=== PATIENT | female | born 1985 ===

== ENCOUNTER 2018-05-02 18:45 | Inpatient (IN) | payer OTHER ==
[2018-05-02] MEDS ORDERED: Lactated Ringer's 1,000 ML IV STA (19:57)
[2018-05-02 20:24] LABS: BASO % 0.4 % (0.0-2.0); EOS # 0.1 K/uL (0.0-0.7); EOS % 0.9 % (0.0-4.0); LYMPH # 3.6 K/uL (1.0-4.3); LYMPH % 36.9 % (20.0-40.0); MEAN CELL VOLUME 75.8 fl (81.0-99.0); MEAN PLATELET VOLUME 8.2 fl (7.2-11.7); MONO # 0.8 K/uL (0.0-0.8); NEUT # 5.2 K/uL (1.8-7.0); NEUT % 53.8 % (50.0-75.0); RBC 2.44 Mil/uL (3.80-5.20); RED CELL DISTRIBUTION WIDTH 19.1 % (11.5-14.5); WHITE BLOOD COUNT 9.7 K/uL (4.8-10.8)
--- NOTE | 2018-05-02 20:27 | ED PDOC ---
HPI: General Adult Time Seen by Provider: 05/02/18 19:10 Chief Complaint (Nursing): Palpitations Chief Complaint (Provider): Vaginal Bleeding and Lightheadedness History Per: Patient History/Exam Limitations: no limitations Onset/Duration Of Symptoms: Days (xweek) Current Symptoms Are (Timing): Still Present Additional Complaint(s): 32 year old female with a history of anemia presents to the ED with lightheadedness and vaginal bleeding onset last week. Patient reports heavy bleeding and using over 5 pads a day with clots. Over last 2 days, she has developed a progressively worsening lightheadedness, with shortness of breath, poor exercise tolerance, and pallor. When she walks, her legs and back hurt so much that she has to stop. Her last period was 4 months ago, before then she had been trying different control pills to become regular. The last time she took them was 4 months ago. PMD: none provided Past Medical History Reviewed: Historical Data, Nursing Documentation, Vital Signs Vital Signs: Last Vital Signs Temp 98.8 F 05/02/18 18:52 Pulse 102 H 05/02/18 18:52 Resp 18 05/02/18 18:52 BP 140/78 05/02/18 18:52 Pulse Ox 99 05/02/18 18:52 - Medical History PMH: Anemia - Surgical History Surgical History: No Surg Hx - Family History Family History: States: No Known Family Hx - Social History Current smoker - smoking cessation education provided: No Ex-Smoker (has not smoked in the last 12 months): No - Allergies Allergies/Adverse Reactions: Allergies Allergy/AdvReac Type Severity Reaction Status Date / Time No Known Allergies Allergy Verified 05/02/18 18:52 Review of Systems Gastrointestinal: Positive for: Abdominal Pain (cramping) Genitourinary Female: Positive for: Vaginal Bleeding Neurological: Positive for: Other (lightheadedness) Physical Exam - Reviewed Nursing Documentation Reviewed: Yes Vital Signs Reviewed: Yes - Physical Exam Appears: Positive for: In Acute Distress (tired appearing) Skin: Positive for: Pallor Gastrointestinal/Abdominal: Positive for: Soft, Tenderness (suprapubic) - Laboratory Results Result Diagrams: 05/02/18 20:05 05/02/18 20:05 - ECG O2 Sat by Pulse Oximetry: 99 (RA) Pulse Ox Interpretation: Normal Medical Decision Making Medical Decision Making: Time: 1951 Initial Impression: Vaginal bleeding and anemia Initial Plan: --Type and screen --CMP --Lact acid --U preg --U dip --CBC with differentials --PTT --PT --Lactated ringers --US transvaginal --Hemoglobin is 6.1. Discussed case with WENCESLAO Cruz money position officer. Patient will be admitted for severe anemia and vaginal bleeding. Patient received 2 units of PRBCS and IV TXA. Discussed findings and plan of care, risks and benefits of blood transfusion discussed. Patient signed consent for treatment. Scribe Attestation: Documented by Kassandra Pathak, acting as a scribe for Katja Villa MD Provider Scribe Attestation: All medical record entries made by the Scribe were at my direction and personally dictated by me. I have reviewed the chart and agree that the record accurately reflects my personal performance of the history, physical exam, medical decision making, and the department course for this patient. I have also personally directed, reviewed, and agree with the discharge instructions and disposition. Disposition - Disposition Forms: [employer] (Citizen Of [place])
[2018-05-02 20:28] LABS: PROTHROMBIN TIME 11.3 Seconds (9.8-13.1)
[2018-05-02 20:30] LABS: PARTIAL THROMBOPLASTIN TIME 29.3 Seconds (25.6-37.1)
[2018-05-02 20:35] LABS: ALB/GLOB RATIO 1.3 (1.0-2.1); ALBUMIN 3.8 g/dL (3.5-5.0); ALT/SGPT 24 U/L (9-52); AST/SGOT 31 U/L (14-36); BLOOD UREA NITROGEN 15 mg/dl (7-17); CALCIUM 8.9 mg/dL (8.4-10.2); GFR NON-AFRICAN AMERICAN > 60
[2018-05-02 20:37] LABS: HEMOGLOBIN 6.1 g/dL (12.0-16.0)
--- NOTE | 2018-05-02 23:00 | CP.PCM.HP ---
History of Present Illness - History of Present Illness History of Present Illness: 32 year old female presents with a 1 week history of heavy menstrual bleeding and numerous clots (10 pads/day) and complains of lightheadedness, headache, and shortness of breath. As per patient this happened one year prior, went to [facility] ED, was not transfused or admitted and was told to go to a apron cleaner. The apron cleaner she saw (patient cannot recall name) gave her OCPs which regulated her period and bleeding. 4 months ago she stopped taking her control. Last month she bled everyday but not as much as this prior week. She denies syncope, chest pain, nausea, vomiting, dirrhea, constipation, urinary symptoms and rectal bleeding. PCP: none PMH: previous anemia secondary to acute blood loss? 2017 Family Hx: Mother- DM Social: 5-6 cig/week, social EtOH, denies illicit drugs Surgical Hx: gallbladder 2013 OBHx: irregular period, OCP 2016 - December 2017 Vitals: stable, BP 113/80, HR 91 Present on Admission - Present on Admission Any Indicators Present on Admission: No Review of Systems - Constitutional Constitutional: absent: Anorexia, Chills, Fever - EENT Eyes: absent: Change in Vision - Cardiovascular Cardiovascular: absent: Chest Pain with Activity - Respiratory Respiratory: As Per HPI - Gastrointestinal Gastrointestinal: absent: Abdominal Pain, Change in Stool Character, Constipation, Diarrhea - Reproductive: Female Reproductive:Female: As Per HPI - Neurological Neurological: absent: Syncope Past Patient History - Past Social History Smoking Status: Unknown If Ever Smoked - HEMATOLOGICAL/ONCOLOGICAL Hx Anemia: Yes - GENITOURINARY/GYNECOLOGICAL Hx Genitourinary Disorders: Yes Other/Comment: PCOD - PSYCHIATRIC Hx Substance Use: No Meds Allergies/Adverse Reactions: Allergies Allergy/AdvReac Type Severity Reaction Status Date / Time No Known Allergies Allergy Verified 05/02/18 18:52 Physical Exam - Constitutional Appears: Non-toxic - Head Exam Head Exam: ATRAUMATIC - Eye Exam Additional comments: conjunctival pallor - ENT Exam ENT Exam: Mucous Membranes Dry - Respiratory Exam Respiratory Exam: Clear to Auscultation Bilateral, NORMAL BREATHING PATTERN - Cardiovascular Exam Cardiovascular Exam: REGULAR RHYTHM - GI/Abdominal Exam GI & Abdominal Exam: Normal Bowel Sounds, Soft. absent: Tenderness - Exam External exam: NORMAL EXTERNAL EXAM (minimal bleeding noted on pad - no clots) - Extremities Exam Extremities exam: Positive for: normal inspection. Negative for: pedal edema - Neurological Exam Neurological exam: Alert, Oriented x3 - Psychiatric Exam Psychiatric exam: Normal Affect, Normal Mood - Skin Skin Exam: Dry, Pallor Results - Vital Signs Recent Vital Signs: Last Vital Signs Temp 98.1 F 05/02/18 22:46 Pulse 88 05/02/18 22:46 Resp 18 05/02/18 22:46 BP 106/61 05/02/18 22:46 Pulse Ox 100 05/02/18 22:07 - Labs Result Diagrams: 05/02/18 20:05 05/02/18 20:05 Labs: Laboratory Results - last 24 hr 05/02/18 05/02/18 05/02/18 20:05 20:05 20:05 WBC 9.7 RBC 2.44 L Hgb 6.1 L* Hct 18.5 L MCV 75.8 L MCH 25.0 L MCHC 33.0 RDW 19.1 H Plt Count 320 MPV 8.2 Neut % (Auto) 53.8 Lymph % (Auto) 36.9 [place] % (Auto) 8.0 Eos % (Auto) 0.9 Baso % (Auto) 0.4 Neut # (Auto) 5.2 Lymph # (Auto) 3.6 [place] # (Auto) 0.8 Eos # (Auto) 0.1 Baso # (Auto) 0.0 PT 11.3 INR 1.0 APTT 29.3 Sodium 140 Potassium 3.6 Chloride 104 Carbon Dioxide 27 Anion Gap 13 BUN 15 Creatinine 0.6 L Est GFR ( Amer) > 60 Est GFR (Non-Af Amer) > 60 Random Glucose 93 Lactic Acid Calcium 8.9 Total Bilirubin < 0.1 L AST 31 ALT 24 Alkaline Phosphatase 70 Total Protein 6.7 Albumin 3.8 Globulin 3.0 Albumin/Globulin Ratio 1.3 Blood Type Blood Type Confirm Antibody Screen Crossmatch BBK History Checked 05/02/18 05/02/18 05/02/18 20:05 20:16 21:00 WBC RBC Hgb Hct MCV MCH MCHC RDW Plt Count MPV Neut % (Auto) Lymph % (Auto) [place] % (Auto) Eos % (Auto) Baso % (Auto) Neut # (Auto) Lymph # (Auto) [place] # (Auto) Eos # (Auto) Baso # (Auto) PT INR APTT Sodium Potassium Chloride Carbon Dioxide Anion Gap BUN Creatinine Est GFR ( Amer) Est GFR (Non-Af Amer) Random Glucose Lactic Acid < 0.5 L Calcium Total Bilirubin AST ALT Alkaline Phosphatase Total Protein Albumin Globulin Albumin/Globulin Ratio Blood Type O POSITIVE Blood Type Confirm O POSITIVE Antibody Screen Negative Crossmatch See Detail BBK History Checked No verified bt Assessment & Plan - Assessment and Plan (Free Text) Assessment: 32 year old female presents with a 1 week history of heavy menstrual bleeding and numerous clots (10 pads/day) and complains of lightheadedness, headache, and shortness of breath. Anemia likely secondary to acute blood loss -2 units PRBC -traneximic acid -NPO -IVF D5 + 0.5NS + 20 mEq K -monitor vitals overnight -repeat CBC am
[2018-05-03] MEDS: Potassium Ch 20mEq in D5-1/2NS 1,000 ML IV SCH ×3 (02:54→08:21)
[2018-05-03 07:46] VITALS: BP 99/62; PULSE 70; RESP 19; TEMP 97.8; O2SAT 98
[2018-05-03 09:14] LABS: HEMOGLOBIN 8.5 g/dL (12.0-16.0); MEAN CELL VOLUME 79.7 fl (81.0-99.0); MEAN CORPUSCULAR HEMOGLOBIN 26.8 pg (27.0-31.0); MEAN CORPUSCULAR HGB CONC 33.6 g/dL (33.0-37.0); RBC 3.17 Mil/uL (3.80-5.20); WHITE BLOOD COUNT 8.7 K/uL (4.8-10.8)
--- NOTE | 2018-05-03 09:33 | CP.PCM.DIS ---
Provider - Provider Date of Admission: 05/02/18 21:53 Attending physician: Kaden Clemons MD Time Spent in preparation of Discharge (in minutes): 30 Diagnosis - Discharge Diagnosis (1) Menorrhagia Status: Acute Comment: Patient recieved 2 pRBC during hospital stay. Repeat CBC: 8.5/ 25.3. Patient will be schedule by Natalie Garcia for follow up with Dr. Zuniga in [facility] gynecology clinic. Hospital Course - Lab Results Lab Results: Most Recent Lab Values WBC 8.7 K/uL (4.8-10.8) 05/03/18 09:05 RBC 3.17 Mil/uL (3.80-5.20) L 05/03/18 09:05 Hgb 8.5 g/dL (12.0-16.0) L D 05/03/18 09:05 Hct 25.3 % (34.0-47.0) L 05/03/18 09:05 MCV 79.7 fl (81.0-99.0) L D 05/03/18 09:05 MCH 26.8 pg (27.0-31.0) L 05/03/18 09:05 MCHC 33.6 g/dL (33.0-37.0) 05/03/18 09:05 RDW 19.0 % (11.5-14.5) H 05/03/18 09:05 Plt Count 278 K/uL (130-400) 05/03/18 09:05 MPV 8.2 fl (7.2-11.7) 05/02/18 20:05 Neut % (Auto) 53.8 % (50.0-75.0) 05/02/18 20:05 Lymph % (Auto) 36.9 % (20.0-40.0) 05/02/18 20:05 [place] % (Auto) 8.0 % (0.0-10.0) 05/02/18 20:05 Eos % (Auto) 0.9 % (0.0-4.0) 05/02/18 20:05 Baso % (Auto) 0.4 % (0.0-2.0) 05/02/18 20:05 Neut # (Auto) 5.2 K/uL (1.8-7.0) 10/08/18 20:05 Lymph # (Auto) 3.6 K/uL (1.0-4.3) 05/02/18 20:05 [place] # (Auto) 0.8 K/uL (0.0-0.8) 05/02/18 20:05 Eos # (Auto) 0.1 K/uL (0.0-0.7) 05/02/18 20:05 Baso # (Auto) 0.0 K/uL (0.0-0.2) 05/02/18 20:05 PT 11.3 Seconds (9.8-13.1) 05/02/18 20:05 INR 1.0 05/02/18 20:05 APTT 29.3 Seconds (25.6-37.1) 05/02/18 20:05 Sodium 140 mmol/l (132-148) 05/02/18 20:05 Potassium 3.6 MMOL/L (3.6-5.0) 05/02/18 20:05 Chloride 104 mmol/L (98-107) 05/02/18 20:05 Carbon Dioxide 27 mmol/L (22-30) 05/02/18 20:05 Anion Gap 13 (10-20) 05/02/18 20:05 BUN 15 mg/dl (7-17) 05/02/18 20:05 Creatinine 0.6 mg/dl (0.7-1.2) L 05/02/18 20:05 Est GFR ( Amer) > 60 05/02/18 20:05 Est GFR (Non-Af Amer) > 60 05/02/18 20:05 Random Glucose 93 mg/dL (65-105) 05/02/18 20:05 Lactic Acid < 0.5 MMOL/L (0.7-2.1) L 05/02/18 20:16 Calcium 8.9 mg/dL (8.4-10.2) 05/02/18 20:05 Total Bilirubin < 0.1 mg/dl (0.2-1.3) L 05/02/18 20:05 AST 31 U/L (14-36) 05/02/18 20:05 ALT 24 U/L (9-52) 05/02/18 20:05 Alkaline Phosphatase 70 U/L (38-126) 05/02/18 20:05 Total Protein 6.7 G/DL (6.3-8.2) 05/02/18 20:05 Albumin 3.8 g/dL (3.5-5.0) 05/02/18 20:05 Globulin 3.0 gm/dL (2.2-3.9) 05/02/18 20:05 Albumin/Globulin Ratio 1.3 (1.0-2.1) 05/02/18 20:05 Blood Type O POSITIVE 05/02/18 20:05 Blood Type Confirm O POSITIVE 05/02/18 21:00 Antibody Screen Negative 05/02/18 20:05 Crossmatch See Detail 05/02/18 20:05 BBK History Checked No verified bt 05/02/18 20:05 - Hospital Course Hospital Course: 32 year old female presents with a 1 week history of heavy menstrual bleeding and numerous clots (10 pads/day) and complains of lightheadedness, headache, and shortness of breath. Patient reports this happened last year but she was not transfused or admitted. At that time she went to her Brand Ambassador Promotional Model, patient cannot recall name of [employer], and was given OCPs. She reports the OCPs regulated her period and bleeding. She took OCPs from December. Last month she reports she bled everyday but not as much as this prior week. She denies syncope, chest pain, nausea, vomiting, bleeding disorder history or history of bleeding disorder in the family, diarrhea, constipation, urinary symptoms and rectal bleeding. PCP: none PMH: previous anemia secondary to acute blood loss? 2017 Family Hx: Mother- DM Social: 5-6 cig/week, social EtOH, denies illicit drugs Surgical Hx: gallbladder 2013 OBHx: irregular period, OCP 2016 - December 2017 ED course: T: 98.1 F ; HR: 88; Resp: 18; BP: 106/81; pulse ox: 100% - CBC: H/H: 6.1/18.4 - U/s transvaginal performed- pending results - LR 1 L bolus given - Patient was admitted for severe anemia under OBGYN. Floor Course: Patient vitally stable throughout course of hospital stay. She received 2 u of pRBCs and Tranexamic acid 1,000 mg x2. Repeat CBC H/H: 8.5/25.3. Patient stable for discharge with appointment for [facility] gynecology clinic, Dr. Zuniga. Natalie Jorge, the renderer, was emailed 05/03 @ 9:30 am for a follow up in 1-2 weeks. Discharge Exam - Head Exam Head Exam: ATRAUMATIC - Eye Exam Additional comments: Conjunctival pallor. - ENT Exam ENT Exam: Mucous Membranes Moist - Respiratory Exam Respiratory Exam: Clear to PA & Lateral, NORMAL BREATHING PATTERN, UNREMARKABLE. absent: Rales, Rhonchi, Wheezes, Respiratory Distress, Stridor - Cardiovascular Exam Cardiovascular Exam: REGULAR RHYTHM, RRR, +S1, +S2. absent: Diastolic murmur, Gallop, JVD, Rubs, +S4, Systolic Murmur Additional comments: +2 Dorsalis pedis, Tibialis and radial pulses bilaterally. - GI/Abdominal Exam GI & Abdominal Exam: Normal Bowel Sounds, Soft, Unremarkable. absent: Distended, Firm, Hernia, Mass, Rebound, Rigid, Tenderness - Neurological Exam Neurological exam: Alert, Oriented x3 - Skin Skin Exam: Dry, Intact, Normal Color, Warm Discharge Plan - Follow Up Plan Condition: GOOD Disposition: HOME/ ROUTINE Patient education suggested?: Yes Instructions: Heavy Periods (DC), Normocytic Normochromic Anemia (DC) Additional Instructions: It is important to follow up in [place] with Dr. Zuniga in 1- 2 weeks. You will be called to schedule an appointment by Natalie Garcia. Referrals: [facility] [Outside] Desiree Dudley MD [Staff Provider] -
--- NOTE | 2018-05-03 12:00 | US ---
Date of service: 05/02/2018 HISTORY: heavy vaginal bled and irregular menses. Currently bleeding 4 weeks duration. LMP: Not provided COMPARISON: None available. TECHNIQUE: Transvaginal only. Real -time technique with 2D, duplex and color Doppler FINDINGS: UTERUS: Measures 3.4 x 3.9 x 8.3 cm. Normal in size and appearance. No fibroid or other mass lesion seen. ENDOMETRIUM: Measures 13.3 mm in diameter. No ultrasound findings to suggest gestational sac, fluid, debris, mass or polyp or other pathologic process within the endometrium. CERVIX: No cervical abnormality identified.Incidental finding: Nabothian cysts the largest measures less than 1 cm. RIGHT OVARY: Measures 1.9 x 3 x 3 cm. No solid mass. Normal flow. Multiple subcentimeter follicles. LEFT OVARY: Measures 2.1 x 2.6 x 2.8 cm. No solid mass. Normal flow. Multiple subcentimeter follicles. FREE FLUID: No significant free fluid noted. OTHER FINDINGS: None. IMPRESSION: No acute findings related to/accounting for the clinical presentation. Additional benign and/or incidental findings described above. Concordant results (preliminary interpretation) provided by [employer]. Procedure Completed: 21:43 Preliminary Report: Dictated and Authenticated: 23:13. Final Interpretation: 11:57. May 03, 2018
[2018-05-03 14:47] LABS: BLOOD UREA NITROGEN 10 mg/dl (7-17); CALCIUM 8.4 mg/dL (8.4-10.2); GFR NON-AFRICAN AMERICAN > 60
== END 2018-05-03 14:11 | disposition home or self-care (01) | DRG 369 ==
LOC: H.ER 18:45 → H.ERHOLD 21:53 → H.MEDSURG1 23:24
PROVIDERS: ADMIT Obstetrics & Gynecology; ATTEND Obstetrics & Gynecology
PROC: 30233N1 Transfusion of Nonautologous Red Blood Cells into Peripheral Vein, Percutaneous Approach (ICD-10-PCS; principal; 2018-05-02)
DX: N92.0 Excessive and frequent menstruation with regular cycle (principal); Z83.3 Family history of diabetes mellitus; D62 Acute posthemorrhagic anemia; E28.2 Polycystic ovarian syndrome

== ENCOUNTER 2018-07-19 21:08 | Emergency (ER) | payer SELFPAY ==
[2018-07-19 21:16] VITALS: TEMP 98.8
--- NOTE | 2018-07-19 22:44 | ED PDOC ---
HPI: Female Pain Time Seen by Provider: 07/19/18 21:57 Chief Complaint (Nursing): Female Genitourinary Chief Complaint (Provider): bleeding History Per: Patient History/Exam Limitations: no limitations Additional Complaint(s): 33 y/o F with hx of dysfunctional uterine bleeding who presents with heavy vaginal bleeding since yesterday. Pt states that she has a history of this. She was seen in ER approximately 2 months ago and was found to have HgB 6 requiring blood transfusion. She followed up with [employer] Operator Dr. Gutierrez and was advised to take Medroxyprogesterone 10mg PO TID for 7 days if she began having heavy bleeding again. Pt states that she began noticing heavy bleeding yesterday. She has taken 3 doses of the Medroxyprogesterone w/o any improvement in the bleeding. She is noticing blood clots and is wearing adult diapers, which she has changed 10 times since this morning and has some pelvic cramping. She admits to some lightheadedness and chest heaviness as well as SOB with activity. She has some chest heaviness at rest. Denies palpitations, syncope, N/V, diarrhea. Abnormal Vaginal Bleeding: Yes Past Medical History Reviewed: Historical Data, Nursing Documentation, Vital Signs Vital Signs: Last Vital Signs Temp 98.8 F 07/19/18 21:12 Pulse 80 07/19/18 21:12 Resp 18 07/19/18 21:12 BP 159/77 H 07/19/18 21:12 Pulse Ox 99 07/19/18 21:12 - Medical History PMH: Anemia Denies: Chronic Kidney Disease Other PMH: polycystic ovarian syndrome - Surgical History Surgical History: No Surg Hx - Family History Family History: States: Unknown Family Hx - Allergies Allergies/Adverse Reactions: Allergies Allergy/AdvReac Type Severity Reaction Status Date / Time No Known Allergies Allergy Verified 07/19/18 21:11 Physical Exam - Reviewed Nursing Documentation Reviewed: Yes Vital Signs Reviewed: Yes - Physical Exam Appears: Positive for: Non-toxic Head Exam: Positive for: ATRAUMATIC Skin: Positive for: Normal Color Eye Exam: Positive for: Other (pale conjunctiva) Neck: Positive for: Normal Cardiovascular/Chest: Positive for: Regular Rate, Rhythm Respiratory: Positive for: Normal Breath Sounds Gastrointestinal/Abdominal: Positive for: Tenderness (mild pelvic tenderness) Lymphatic: Positive for: Normal Exam Neurologic/Psych: Positive for: Alert, Oriented - Laboratory Results Result Diagrams: 07/19/18 23:04 - ECG O2 Sat by Pulse Oximetry: 99 Medical Decision Making Medical Decision Making: CBC, Type and screen Urine dip Urine EKG: sinus, no ischemic change. H/H stable, urine dip neg for LE or nitrates, stable for d/c home with return instructions given. Pt to call Dr. Zuniga tomorrow and continue Medroxyprogesterone as prescribed. Pt demonstrated understanding. Disposition - Clinical Impression Clinical Impression: Dysfunctional uterine bleeding - Patient ED Disposition Is Patient to be Admitted: No Counseled Patient/Family Regarding: Studies Performed, Diagnosis, Need For Followup - Disposition Referrals: Desiree Dudley MD [Family Provider] - Disposition: Routine/Home Disposition Time: 00:05 Condition: STABLE Additional Instructions: Call Dr. Zuniga tomorrow to inform her of your symptoms. Continue to take Medroxyprogesterone and iron pills as prescribed. Return to ER if your chest pain, Shortness of breath or dizziness worsen. Refrain from heavy lifting until bleeding improves. Forms: [employer] (Irish), [facility] School/Work Excuse Print Language: YAKUT
[2018-07-19 23:07] LABS: BASO % 0.4 % (0.0-2.0); EOS # 0.1 K/uL (0.0-0.7); EOS % 1.6 % (0.0-4.0); HEMOGLOBIN 9.9 g/dL (12.0-16.0); LYMPH % 38.5 % (20.0-40.0); MEAN CELL VOLUME 78.9 fl (81.0-99.0); MEAN CORPUSCULAR HEMOGLOBIN 24.9 pg (27.0-31.0); MEAN CORPUSCULAR HGB CONC 31.5 g/dL (33.0-37.0); MEAN PLATELET VOLUME 8.7 fl (7.2-11.7); MONO # 0.6 K/uL (0.0-0.8); MONO % 7.6 % (0.0-10.0); NEUT % 51.9 % (50.0-75.0); NRBC % 0.1 % (0.0-0.0); RBC 3.98 Mil/uL (3.80-5.20); RED CELL DISTRIBUTION WIDTH 18.4 % (11.5-14.5); WHITE BLOOD COUNT 7.8 K/uL (4.8-10.8)
[2018-07-20 00:21] VITALS: BP 120/78; PULSE 67; RESP 14
[2018-07-20 06:57] VITALS: O2SAT 99
--- NOTE | 2018-07-21 | CARD ---
APPROVED REPORT Date of service: 07/19/2018 EKG Measurement Heart [id number] <Conclusion> Normal sinus rhythm Incomplete right bundle branch block Borderline ECG
== END 2018-07-20 00:05 | disposition home or self-care (01) ==
LOC: H.ER 21:08
DX: N93.8 Other specified abnormal uterine and vaginal bleeding (principal); E28.2 Polycystic ovarian syndrome; R07.89 Other chest pain

== ENCOUNTER 2018-08-02 09:54 | Emergency (ER) | payer SELFPAY ==
[2018-08-02] MEDS ORDERED: Sodium Chloride 0.9% 1,000 ML IV STA (10:17)
--- NOTE | 2018-08-02 10:21 | ED PDOC ---
HPI: Female Pain Time Seen by Provider: 08/02/18 10:12 History Per: Patient Onset/Duration Of Symptoms: Days (2) Current Symptoms Are (Timing): Still Present Severity: Moderate Quality Of Discomfort: Cramping Additional Complaint(s): Mod to heavy vaginal bleeding x 2 days. H/o DUB with anemia, last seen 06/2018 with Hgb at that time 9.9. States bleeding improve after last visit but started heavily 2 days ago assoc with lower abd cramping. Has previous h/o anemia requiring transfusion. Feels weak and tired today. Past Medical History Vital Signs: Last Vital Signs Temp 98.5 F 08/02/18 10:00 Pulse 94 H 08/02/18 10:00 Resp 18 08/02/18 10:00 BP 144/77 08/02/18 10:00 Pulse Ox 100 08/02/18 10:00 - Medical History PMH: Anemia Denies: Chronic Kidney Disease - Family History Family History: States: Unknown Family Hx - Home Medications Home Medications: Ambulatory Orders Medication Instructions Recorded Iron 18 mg PO DAILY #30 tablet 08/02/18 MedroxyPROGESTERone [Provera] 10 mg PO DAILY #10 tab 08/02/18 - Allergies Allergies/Adverse Reactions: Allergies Allergy/AdvReac Type Severity Reaction Status Date / Time No Known Allergies Allergy Verified 08/02/18 11:50 Review of Systems Constitutional: Negative for: Fever Gastrointestinal: Positive for: Abdominal Pain Genitourinary Female: Positive for: Vaginal Bleeding Physical Exam - Physical Exam Appears: Positive for: Non-toxic, No Acute Distress Skin: Positive for: Pallor Gastrointestinal/Abdominal: Positive for: Bowel Sounds, Soft, Tenderness (Mild suprapubic) Pelvic Exam: Positive for: External Exam Normal, Blood (Mod blood in vault). Negative for: Mass, Tender Adnexa, Tender Uterus - Laboratory Results Result Diagrams: 08/02/18 11:05 08/02/18 11:05 - ECG O2 Sat by Pulse Oximetry: 100 Medical Decision Making Medical Decision Making: Discussed with Dr. Aguilera. Pt can be dc'ed on Provera and Fe and followed in [facility] should get BCPs unless contraindicated Disposition - Clinical Impression Clinical Impression: Menorrhagia, Anemia, Vaginal bleeding - Patient ED Disposition Is Patient to be Admitted: No Counseled Patient/Family Regarding: Studies Performed, Diagnosis, Need For Followup, Rx Given - Disposition [facility]] Disposition: Routine/Home Disposition Time: 12:12 Condition: FAIR Prescriptions: Iron 18 mg PO DAILY #30 tablet MedroxyPROGESTERone [Provera] 10 mg PO DAILY #10 tab Instructions: Heavy Periods, Anemia Caused by Low Iron Print Language: [place]
[2018-08-02 11:46] LABS: BASO % 0.5 % (0.0-2.0); EOS # 0.1 K/uL (0.0-0.7); EOS % 1.5 % (0.0-4.0); HEMOGLOBIN 7.9 g/dL (12.0-16.0); LYMPH % 30.1 % (20.0-40.0); MEAN CELL VOLUME 82.5 fl (81.0-99.0); MEAN CORPUSCULAR HEMOGLOBIN 25.9 pg (27.0-31.0); MEAN CORPUSCULAR HGB CONC 31.4 g/dL (33.0-37.0); MEAN PLATELET VOLUME 7.9 fl (7.2-11.7); MONO # 0.6 K/uL (0.0-0.8); MONO % 9.5 % (0.0-10.0); NEUT # 3.9 K/uL (1.8-7.0); NEUT % 58.4 % (50.0-75.0); NRBC % 0.2 % (0.0-0.0); RBC 3.04 Mil/uL (3.80-5.20); RED CELL DISTRIBUTION WIDTH 21.6 % (11.5-14.5); WHITE BLOOD COUNT 6.6 K/uL (4.8-10.8)
[2018-08-02 12:00] LABS: ALB/GLOB RATIO 1.3 (1.0-2.1); ALBUMIN 3.8 g/dL (3.5-5.0); ALT/SGPT 22 U/L (9-52); AST/SGOT 22 U/L (14-36); BLOOD UREA NITROGEN 16 mg/dl (7-17); CALCIUM 8.9 mg/dL (8.4-10.2); GFR NON-AFRICAN AMERICAN > 60
[2018-08-02 19:18] VITALS: BP 111/71; PULSE 75; RESP 18; TEMP 98.5; O2SAT 100
== END 2018-08-02 13:15 | disposition home or self-care (01) ==
LOC: H.ER 09:54
DX: N93.8 Other specified abnormal uterine and vaginal bleeding (principal); N92.0 Excessive and frequent menstruation with regular cycle; D64.9 Anemia, unspecified
CPT/HCPCS: 80053; 81025; 84702; 85025; 86850; 86900; 99285; J7030